=== PATIENT | female | born 1965 | race Caucasian/White ===

== ENCOUNTER → 2024-03-16 13:29 | Outpatient (REF) | payer BC, SELFPAY | LOC: HWRAD 13:29 | PROVIDERS: ATTENDING PHYSICIAN Internal Medicine Cardiovascular Disease; FAMILY PHYSICIAN Family Medicine | DX: I77.819 Aortic ectasia, unspecified site (principal); Z95.2 Presence of prosthetic heart valve | CPT/HCPCS: 71275; Q9967 ==

== ENCOUNTER 2025-03-09 06:53 | Emergency (ER) | payer BC, SELFPAY ==
[2025-03-09 07:02] VITALS: BP 132/90
[2025-03-09 08:06] VITALS: BMI 33.3
--- NOTE | 2025-03-09 08:11 | ED.GENMED ---
History of Present Illness
General
Chief Complaint: Musculo-Skeletal Complaint
Source: patient
Exam Limitations: none
Time Seen by Provider: 03/09/25 08:00
History of Present Illness
History of Present Illness:
59yoF presenting with her for evaluation of a left ankle injury. Patient states her foot 'fell asleep' last night and she walked on it and her ankle rolled. The injury occurred at 9pm last night. She has been able to bear weight but it is
difficulty. She is presenting with pain and swelling to her lateral malleolus region. No paresthesias. No other injuries sustained. No prior injuries to the L ankle.
Past History
Past History
ED Past Medical History: GERD, Valvular disease () and Hypothyroidism
ED Past Surgical History: Cholecystectomy and (X2)
Social History
Tobacco: Non-smoker
Alcohol: None
Drug: None
Personal:
Living: with family
Employment: Employed
Phy Exam
General Physical Exam
General Presentation: well appearing and no apparent distress
General age: appears stated age
General Skin: warm and dry
General Habitus: normal
General Mental: alert
ENT Exam
ENT Exam: normocephalic
Neurological Exam
Neurological Exam: alert
[place] Coma Scale
Eye Opening: Spontaneous
Verbal Response: Oriented
Motor Response: Obeys Commands
GCS Total Score: 15
Musculoskeletal Exam
Musculoskeletal Exam: other (L ankle: Swelling and tenderness noted to the lateral malleolus. Skin intact. No deformity. No tenderness to proximal fibula or 5th metatarsal. ROM intact. 2+ DP pulse and sensation intact. )
Skin Exam
Skin Exam: normal color and warm/dry
Psychiatric Exam
Psychiatric Exam: normal mood/affect
Course
Orders/Labs/Results
Orders:
Orders
03/09/25 07:06
CR Ankle - Left Min 3 Views Urgent
Comment:
Reason For Exam: injury, pain, swelling
03/09/25 08:10
Air Splint Left-Treatment ONCE
Crutches-Treatment ONCE
Vital Signs
Initial and Last Documented VS:
Initial Vital Signs
Temp Pulse Resp BP Pulse Ox
98 F 96 16 132/90 98
03/09/25 07:02 03/09/25 07:02 03/09/25 07:02 03/09/25 07:02 03/09/25 07:02
Last Documented Vital Signs
Temp Pulse Resp BP Pulse Ox
98 F 96 16 132/90 98
03/09/25 07:02 03/09/25 07:02 03/09/25 07:02 03/09/25 07:02 03/09/25 07:02
MDM/Problems Addressed
Differential Diagnosis Includes:
59yoF here with L ankle pain after an injury last night. No deformity on exam. There is tenderness and swelling to the lateral malleolus. LLE is neurovascularly intact. Differential diagnosis includes: sprain vs. fracture
X-rays obtained which are negative for fractures. Patient diagnosed with an ankle sprain. Supportive care discussed including RICE. Air cast and crutches provided. Advised f/u with orthopedics with persistent symptoms.
*Critical Care Note
Total Time (30-74mins, 75-104mins- exclusive of procedures): Not Applicable
ED Attending Note
-
Portions of this chart may have been created with voice recognition software.� Occasional wrong word or��sound alike� substitutions may have occurred due to the inherent limitations of voice recognition software.
Discharge Plan
Departure
Patient Disposition: Home (Routine Discharge)
Date of Disposition: 03/09/25
Time of Disposition: 08:13
Patient with high blood pressure during this ER visit?: No
Discharge Problem:
Left ankle sprain
Instructions: Ankle sprain - ED discharge instructions
Prescriptions:
No Action
ACID GRAIN TRIMMER
DAILY
Synthroid:
DAILY
Patient Comments:
dose not known
metronidazole 500 MG tablet
500 mg PO TID Qty: 21 0RF
oxycodone-acetaminophen 5 MG/325 MG tablet
1 tab PO Q4HPRN PRN (Reason: pain) Qty: 12 0RF
levofloxacin 500 MG tablet
500 mg PO DAILY 7 Days 0RF
Referrals:
Tonny Yu MD [Active] -
Activity Restrictions/Additional Instructions:
Rest, ice, compress, and elevate your ankle. Wear air cast and use crutches as needed. Take Tylenol and ibuprofen as needed for pain.
Please follow-up with orthopedics if symptoms persist.
Interventions
Interventions:
*Risk Screen - Suicide Last Done: 03/09/25 07:02
*General Assessment Last Done: 03/09/25 07:02
*Neglect/Abuse Screening Last Done: 03/09/25 07:02
*ED- Fall Risk Assessment Last Done: 03/09/25 08:06
*ED COVID-19 Vaccine History Last Done: 03/09/25 08:06
ED-Musculoskeletal Assessment Last Done: 03/09/25 08:06
Discharge Date and Time
Print Language: OCCITAN
== END 2025-03-09 08:43 | disposition home or self-care (01) ==
LOC: EMR 06:53
PROVIDERS: EMERGENCY PHYSICIAN Emergency Medicine; FAMILY PHYSICIAN Family Medicine
DX: S93.402A Sprain of unspecified ligament of left ankle, initial encounter (principal); X58.XXXA Exposure to other specified factors, initial encounter; K21.9 Gastro-esophageal reflux disease without esophagitis; I38 Endocarditis, valve unspecified; E03.9 Hypothyroidism, unspecified; Z90.49 Acquired absence of other specified parts of digestive tract
CPT/HCPCS: 99283; 73610